=== PATIENT | male | born 1980 | race Two or more races ===

== ENCOUNTER 2024-07-21 07:22 | Emergency (ER) | payer MEDICAID, OTHER ==
[~2024-07-21] VITALS: Ht 167.6 cm; Wt 72.7 kg
[2024-07-21 07:45] VITALS: BP 164/116; PULSE 70; RESP 18; TEMP 97.6; O2SAT 96
== END 2024-07-21 11:02 | disposition left against medical advice (07) ==
LOC: ER 07:22 → EDBD 07:22 → ER 11:02
DX: M79.644 Pain in right finger(s) (principal); Z53.21 Procedure and treatment not carried out due to patient leaving prior to being seen by health care provider; V29.888A Rider (driver) (passenger) of other motorcycle injured in other specified transport accidents, initial encounter; Y93.I9 Activity, other involving external motion; Y92.89 Other specified places as the place of occurrence of the external cause; Y99.8 Other external cause status